=== PATIENT | female | born 1965 | race Caucasian/White ===

== ENCOUNTER 2025-08-04 08:00 | Day surgery (SDC) | payer MEDICARE, OTHER ==
[2025-08-01 09:55] VITALS: BMI 34.4
[2025-08-04 08:57] LABS: Hematocrit 36.7 % (34.9-44.5)
[2025-08-04] MEDS ORDERED: Lidocaine 1% w/Epinephrine 1:200K 30 ML VIAL ONE (10:41)
[2025-08-04] MEDS ORDERED: AFRIN NASAL MIST 15 ML BOT ONE ×2 (10:41→10:47)
[2025-08-04] MEDS ORDERED: Lidocaine 1% PF 5 ML VIAL ONE (10:42)
[2025-08-04] MEDS ORDERED: SUGAMMADEX SODIUM 200 MG/2 ML VIAL ONE (10:42)
[2025-08-04] MEDS ORDERED: Rocuronium Bromide 10 MG/ML (10ML VIAL) ONE (10:42)
[2025-08-04] MEDS ORDERED: PROPOFOL 40 ML ONE (10:42)
[2025-08-04] MEDS ORDERED: Oxymetazoline HCl 0.05% (15 ML) ONE (11:18)
[2025-08-04] MEDS ORDERED: Tranexamic Acid 1,000 MG/10 ML VIAL ONE (11:26)
[2025-08-04] MEDS ORDERED: PHENYLEPHRINE-NS 100 MCG/ML 10 ML SYRINGE ONE (12:27)
[2025-08-04] MEDS ORDERED: HYDROcodone/Acetaminophen 5/325 mg Tablet ONE (14:28)
== END 2025-08-04 15:20 | disposition home or self-care (01) ==
LOC: CSHSDC 08:00
PROVIDERS: ATTEND Otolaryngology
PROC: 09SM4ZZ Reposition Nasal Septum, Percutaneous Endoscopic Approach (ICD-10-PCS; principal; 2025-08-04)
PROC: 09TL8ZZ Resection of Nasal Turbinate, Via Natural or Artificial Opening Endoscopic (ICD-10-PCS; 2025-08-04)
DX: J34.2 Deviated nasal septum (principal); J34.3 Hypertrophy of nasal turbinates; I10 Essential (primary) hypertension; Z87.891 Personal history of nicotine dependence; Z98.890 Other specified postprocedural states; Z79.899 Other long term (current) drug therapy
CPT/HCPCS: 30520; 30140; 85014; J1100; J2704; 36415; J0169; J3301